=== PATIENT | male | born 2005 | race Two or more races ===

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

== ENCOUNTER 2024-12-29 12:00 | Emergency (ER) | payer MEDICAID ==
[~2024-12-29] VITALS: Ht 175.3 cm; Wt 91.6 kg
[~2024-12-29 12:00] MED LIST: OMEP-335 PO; ONDA-144 PO
[2024-12-29] MEDS: ACETAMINOPHEN 500 MG TAB or CAP PO ONE (12:33)
[2024-12-29 12:54] VITALS: BP 117/65; PULSE 109; RESP 18; O2SAT 100
--- NOTE | 2024-12-29 13:23 | ED.PDOC ---
Eye-HPI HPI Comments A 19 YEAR OLD MALE PRESENTS TO THE ED WITH CHIEF COMPLAINT OF SORE THROAT. PATIENT REPORTS THAT HE HAS BEEN EXPERIENCING A SORE THROAT WITH ASSOCIATED FEVER FOR THE PAST 4 DAYS. PATIENT DENIES ANY COUGH, NASAL CONGESTION, CHILLS, SOB, CHEST PAIN, N/V/D, OR ABDOMINAL PAIN. NO OTHER SYMPTOMS REPORTED AT THIS TIME OF CARE. Chief Complaint: Sore Throat Time Seen by MD: 13:20 Primary Care Provider: NONE Reviewed Notes: Nurses Notes, Medications, Allergies Allergies: Coded Allergies: NO KNOWN ALLERGIES (Unverified , 11/25/22) Home Meds Active Scripts Lidocaine HCl (Mouth-Throat) (Lidocaine HCl Viscous) 2 % Sharon, 5 ML MT TID, #100 ML Prov:HELDER AGUIRRE 12/29/24 Penicillin V Potassium (Veetids) 500 Mg Tab, 1 TAB PO QID, #28 TAB Prov:HELDER AGUIRRE 12/29/24 Omeprazole (Omeprazole) 20 Mg Tab, 20 MG PO DAILY for 10 Days, #10 TAB Prov:VICTOR MANUEL MAYO 11/25/22 Ondansetron (Zofran) 4 Mg Tab, 1 TAB PO Q6HR, #15 TAB Prov:VICTOR MANUEL [facility] 11/25/22 Information Source: Patient Mode of Arrival: Ambulatory Timing: Days Duration: Since onset Prehospital treatment: None Quality: Pain Lids: Normal Conjunctiva: Normal Cornea: Normal Pupils: Normal EOM: Normal Fundus: Normal Anterior chamber: Normal Mouth Location: Pharynx Mouth: Normal ENT Ear Exam: Normal, Normal, Normal Nose: Normal Sinuses: Normal Oropharynx: Red Onset: Spontaneous Throat Exposed to: None History of: None Associated signs and symptoms: Fever, Sore Throat Past Medical History PAST MEDICAL HISTORY: Denies Surgical History: Denies all surgeries Family History Family History: Reviewed,noncontributory to illness, No family hx of Cancer, No family hx of DM, No family hx of Heart chuck, No family hx of HTN, No family hx ofKidney chuck, No family hx of Liver chuck, No family hx of Lung chuck, No family hx of Stroke Social History Smoker: Non-Smoker Alcohol: Denies ETOH Use Drugs: Denies Drug Use Lives In: Home Constitutional: reports: fever; denies: chills, diaphoresis, fatigue, malaise, sweats, weakness, others EENTM: reports: throat pain, throat swelling; denies: blurred vision, double vision, ear bleeding, ear discharge, ear drainage, ear pain, ear ringing, eye pa in, eye redness, hearing loss, mouth pain, mouth swelling, nasal discharge, nose bleeding, nose congestion, nose pain, photophobia, tearing, voice changes, others Respiratory: denies: cough, hemoptysis, orthopnea, SOB at rest, shortness of breath, SOB with excertion, stridor, wheezing, others Cardiovascular: denies: chest pain, dizzy spells, diaphoresis, Dyspnea on exertion, edema, irregular heart beat, left arm pain, lightheadedness, palpitations, PND, syncope, others Gastrointestinal: denies: abdomen distended, abdominal pain, blood streaked bowels, constipated, diarrhea, dysphagia, difficulty swallowing, hematemesis, melena, nausea, poor appetite, poor fluid intake, rectal bleeding, rectal pain, vomiting, others Genitourinary: denies: burning, dysuria, flank pain, frequency, hematuria, incontinence, penile discharge, penile sore, pain, testicle pain, testicle swelling, urgency, others Neurological: denies: dizziness, fainting, headache, left sided numbness, left sided weakness, numbness, paresthesia, pre-existing deficit, right sided numbness, right sided weakness, seizure, speech problems, tingling, tremors, weakness, others Musculoskeletal: denies: back pain, gout, joint pain, joint swelling, muscle pain, muscle stiffness, neck pain, others Integumetry: denies: bruises, change in color, change in hair/nails, dryness, laceration, lesions, lumps, rash, wounds, others Allergic/Immunocompromised: denies: Difficulty Healing, Frequent Infections, Hives, Itching, others Hematologic/Lymphatic: denies: anemia, blood clots, easy bleeding, easy bruising, swollen glands, others Endocrine: denies: excessive hunger, excessive sweating, excessive thirst, excessive urination, flushing, intolerance to cold, intolerance to heat, unexplained weight gain, unexplained weight loss, others Psychiatric: denies: anxiety, bipolar disorder, depression, hopeless, panic disorder, schizophrenia, sleepless, suicidal, others All Other Systems: Reviewed and Negative Physical Exam General Appearance: No Apparent Distress, Normal HEENT: PERRL/EOMI, Pharyngeal Erythema (TONSILLAR SWELLING, NO EXUDATES. ), TMs Normal Neck: Full Range of Motion, Non-Tender, Normal, Normal Inspection Respiratory: Chest Non-Tender, Lungs Clear, No Accessory Muscle Use, No Respiratory Distress, Normal Breath Sounds Cardiovascular: No Edema, No JVD, No Murmur, No Gallop, Normal Peripheral Pulses, Regular Rate/Rhythm Breast Exam: Deferred Gastrointestinal: No Organomegaly, Non Tender, No Pulsatile Mass, Normal Bowel Sounds, Soft Genitalia: Deferred Pelvic: Deferred Rectal: Deferred Extremities: No calf tenderness, Normal capillary refill, Normal inspection, Normal range of motion, Non-tender, No pedal edema Musculoskeletal : Apperance: Normal Neurologic: Alert, 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 Was a procedure done?: No EENT DIFF Eye: N/A Ear: N/A Nose: N/A Mouth: N/A Sore Throat: Pharyngitis, Streptococcal, Viral Pharyngitis, Other (ACUTE TONSILLITIS ) X-Ray, Labs, Meds, VS Vital Signs Date Time Temp Pulse Resp B/P (MAP) Pulse Ox O2 Delivery O2 Flow Rate FiO2 12/29/24 13:56 98.7 12/29/24 12:54 109 18 100 Room Air 12/29/24 12:54 101.1 109 19 117/65 (82) 100 101.1 12/29/24 12:33 101.1 12/29/24 12:20 101.1 109 18 117/65 (82) 100 Current Medications Medications (Trade) Dose Ordered Sig/Inder Route Start Time Stop Time Status Last Admin Acetaminophen (Tylenol Tablet Or Capsule) 1,000 mg ONCE ONCE PO 12/29/24 12:30 12/29/24 12:31 DC 12/29/24 12:33 Ceftriaxone Sodium (Rocephin) 1,000 mg ONCE ONCE IM 12/29/24 13:15 12/29/24 13:16 DC 12/29/24 13:38 Methylprednisolone Sodium Succinate (Solu Medrol) 125 mg ONCE ONCE IM 12/29/24 13:15 12/29/24 13:16 DC 12/29/24 13:38 Lidocaine HCl (Xylocaine 1%) 2.1 ml ONCE ONCE IJ 12/29/24 13:30 12/29/24 13:31 DC 12/29/24 13:37 X-Ray, Labs, Meds, VS Comment EXTERNAL MEDICAL RECORDS REVIEWED: [NONE] INDEPENDENT HISTORIANS: [NONE] SOCIAL DETERMINANTS OF HEALTH: [NONE] LABS ORDERED: NONE REVIEWED AND INTERPRETED RESULTS: NONE IMAGING ORDERED: NONE TREATMENTS ORDERED: ROCEPHIN 1G IM, SOLU-MEDROL 125MG IM, TYLENOL 1G PO PROCEDURES PERFORMED: NONE CRITICAL CARE TIME: NONE I HAVE DISCUSSED THE PATIENT WITH THE ATTENDING PHYSICIAN DR. STEWARD AND HE AGREES WITH THE PATIENT'S PLAN OF CARE AND DISPOSITION. BASED ON HISTORY OF PRESENT ILLNESS, AND PHYSICAL EXAM, PATIENT WILL BE DISCHARGED HOME. DISCUSSED PLAN FOR DISCHARGE HOME WITH RX. MEDICATION WARNINGS GIVEN. SHARED DECISION MAKING: DISCUSSED WITH PATIENT THAT THEIR WORKUP WAS NORMAL. PATIENT INSTRUCTED TO FOLLOW UP WITH PRIMARY CARE PROVIDER IN 1-2 DAYS FOR RE- EVALUATION OF SYMPTOMS. PATIENT VERBALIZES UNDERSTANDING TO RETURN TO ED FOR NEW OR WORSENING SYMPTOMS OR IF FOLLOW UP WITH PCP CANNOT BE OBTAINED. PATIENT FEELS COMFORTABLE GOING HOME AT THIS TIME. ALL QUESTIONS ADDRESSED AT TIME OF DISCHARGE. Time of 1ST Reevaluation: 14:20 Reevaluation 1ST: Improved Patient Education/Counseling: Diagnosis, Treatment, Need For Follow Up Family Education/Counseling: Diagnosis, Treatment, Need For Follow Up Medical Screening: No EMC Exist At This Time Departure 1 Departure Time of Disposition: 14:20 Impression: Primary Impression: Acute streptococcal tonsillitis Qualified Codes: J03.00 - Acute streptococcal tonsillitis, unspecified Disposition: HOME / SELF CARE / HOMELESS Condition: Stable Additional Instructions: FOLLOW-UP WITH PCP IN 1 TO 2 DAYS. TAKE MEDICATIONS PRESCRIBED. RETURN TO ED FOR ANY NEW OR WORSENING SYMPTOMS. e-Prescriptions Lidocaine HCl (Mouth-Throat) (Lidocaine HCl Viscous) 2 % Sharon 5 ML MT TID, #100 ML Prov: HELDER AGUIRRE 12/29/24 Penicillin V Potassium (Veetids) 500 Mg Tab 1 TAB PO QID, #28 TAB Prov: HELDER AGUIRRE 12/29/24 Discharged With: Self Critical Care Note Critical Care Time?: No Stability Stability form required: No Heart Score Heart Score: Heart Score Response (Comments) Value History N/A 0 EKG N/A 0 Age N/A 0 Risk Factors N/A 0 Troponin N/A 0 Total 0 I personally scribed for HELDER AGUIRRE ([email or web address]) on 12/29/24 at 13:23. Electronically submitted by Kevin Espinosa ([email or web address]). I personally scribed for HELDER AGUIRRE ([email or web address]) on 12/29/24 at 13:24. Electronically submitted by Kevin Espinosa ([email or web address]). HELDER AGUIRRE Dec 29, 2024 13:23
[2024-12-29] MEDS: LIDOCAINE 1% HCL (LOCAL ANESTH.) INJ 20ML MDV IJ ONE (13:37)
[2024-12-29] MEDS: cefTRIAXone SOD 1,000 MG VL IM ONE (13:38)
[2024-12-29] MEDS: methylPREDNISolone SOD SUCC 125 MG/2 ML VL IM ONE (13:38)
[2024-12-29 13:56] VITALS: TEMP 98.7
[2024-12-29] MEDS ORDERED: PENI500T2 PO (14:07)
[2024-12-29] MEDS ORDERED: LIDO2SOL26 MT (14:07)
== END 2024-12-29 14:22 | disposition home or self-care (01) ==
LOC: ER 12:00
DX: J03.00 Acute streptococcal tonsillitis, unspecified (principal); Z79.899 Other long term (current) drug therapy
CPT/HCPCS: 96372; 99284; J0696; J2003; J2919

== ENCOUNTER 2025-09-18 16:17 | Emergency (ER) | payer MEDICAID ==
[~2025-09-18] VITALS: Ht 172.7 cm; Wt 95.2 kg
[~2025-09-18 16:17] MED LIST changes: +LIDO2SOL26 MT; +PENI500T2 PO
[2025-09-18 16:44] VITALS: BP 127/61; PULSE 99; RESP 20; TEMP 98.2; O2SAT 100
[2025-09-18] MEDS ORDERED: OXYM-15 (16:52)
[2025-09-18] MEDS ORDERED: PROM1SOL4 PO (16:52)
[2025-09-18] MEDS ORDERED: BENZ100C97 PO (16:52)
--- NOTE | 2025-09-18 16:52 | ED.PDOC ---
SOB-HPI HPI Comments 19-year-old male presents to the ER with a history of asthma in the chief complaint of shortness of breath. Patient reports on having had nasal congestion associated with a coughing and phlegm which all started yesterday. Patient notes on being on moxifloxacin due from his PCP. Denies any other symptoms at this time. Started Also with Therapies tried COVID-19 exposure: None that they know of COVID testing People at home Denies fevers chills night sweats unintentional weight loss Denies persistent chest pain, shortness of breath, leg swelling Denies history of asthma nor any breathing conditions Denies history of pneumonia Denies recent international travel Chief Complaint: Flu like Time Seen by MD: 16:36 Primary Care Provider: NONE Reviewed notes: Nurses Notes, Medications, Allergies Information Source: Patient Mode of Arrival: Ambulatory Severity: Moderate Timing: Hours Duration: Since onset, Hours Context: Spontaneous Onset PE Risk Factors: None History of: Asthma Prehospital treatment: None Associated Signs and Symptoms: Cough, Nasal Congestion If cough with SOB: Productive Past Medical History PAST MEDICAL HISTORY: Asthma Surgical History: Denies all surgeries Family History Family History: Reviewed,noncontributory to illness, Unknown Social History Smoker: Non-Smoker Alcohol: Denies ETOH Use Drugs: Denies Drug Use Lives In: Home Constitutional: denies: chills, diaphoresis, fatigue, fever, malaise, sweats, weakness, others EENTM: reports: nose congestion; denies: blurred vision, double vision, ear ble eding, ear discharge, ear drainage, ear pain, ear ringing, eye pain, eye redness, hearing loss, mouth pain, mouth swelling, nasal discharge, nose bleeding, nose pain, photophobia, tearing, throat pain, throat swelling, voice changes, others Respiratory: reports: cough; denies: hemoptysis, orthopnea, SOB at rest, shortness of breath, SOB with excertion, stridor, wheezing, others Cardiovascular: denies: chest pain, dizzy spells, diaphoresis, Dyspnea on exertion, edema, irregular heart beat, left arm pain, lightheadedness, palpitations, PND, syncope, others Gastrointestinal: denies: abdomen distended, abdominal pain, blood streaked bowels, constipated, diarrhea, dysphagia, difficulty swallowing, hematemesis, melena, nausea, poor appetite, poor fluid intake, rectal bleeding, rectal pain, vomiting, others Genitourinary: denies: burning, dysuria, flank pain, frequency, hematuria, incontinence, penile discharge, penile sore, pain, testicle pain, testicle swelling, urgency, others Neurological: denies: dizziness, fainting, headache, left sided numbness, left sided weakness, numbness, paresthesia, pre-existing deficit, right sided numbness, right sided weakness, seizure, speech problems, tingling, tremors, weakness, others Musculoskeletal: denies: back pain, gout, joint pain, joint swelling, muscle pain, muscle stiffness, neck pain, others Integumetry: denies: bruises, change in color, change in hair/nails, dryness, laceration, lesions, lumps, rash, wounds, others Allergic/Immunocompromised: denies: Difficulty Healing, Frequent Infections, Hives, Itching, others Hematologic/Lymphatic: denies: anemia, blood clots, easy bleeding, easy bruising, swollen glands, others Endocrine: denies: excessive hunger, excessive sweating, excessive thirst, excessive urination, flushing, intolerance to cold, intolerance to heat, unexplained weight gain, unexplained weight loss, others Psychiatric: denies: anxiety, bipolar disorder, depression, hopeless, panic disorder, schizophrenia, sleepless, suicidal, others All Other Systems: Reviewed and Negative Physical Exam Exam Comments Uvula midline, no airway obstruction, mmm General Appearance: No Apparent Distress, Normal HEENT: Normal ENT Inspection, Pharynx Normal, TMs Normal Neck: Full Range of Motion, Non-Tender, Normal, Normal Inspection Respiratory: Chest Non-Tender, Lungs Clear, No Accessory Muscle Use, No Respiratory Distress, Normal Breath Sounds Cardiovascular: No Edema, No JVD, No Murmur, No Gallop, Normal Peripheral Pulses, Regular Rate/Rhythm Breast Exam: Deferred Gastrointestinal: No Organomegaly, Non Tender, No Pulsatile Mass, Normal Bowel Sounds, Soft Genitalia: Deferred Pelvic: Deferred Rectal: Deferred Extremities: No calf tenderness, Normal capillary refill, Normal inspection, No rmal range of motion, Non-tender, No pedal edema Musculoskeletal : Apperance: Normal Neurologic: Alert, 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 Was a procedure done?: No X-Ray, Labs, Meds, VS Vital Signs Date Time Temp Pulse Resp B/P (MAP) Pulse Ox O2 Delivery O2 Flow Rate FiO2 09/18/25 16:44 99 20 100 Room Air 09/18/25 16:44 98.2 99 20 127/61 (83) 100 98.2 09/18/25 16:23 98.2 99 20 127/61 100 98.2 X-Ray, Labs, Meds, VS Comment Patient arrives alert and oriented, ABC's intact, afebrile, vital signs stable, saturating well in room air Additional MDM Review of External, Non-ED records: External records reviewed. Discussion with independent historian (EMS, family) history obtained from the patient/parents (if applicable) at bedside Chronic conditions affecting care: None Social determinants of health affecting care: None Consideration of admission (observation or admission): I considered escalation of care to admission for this patient, however given the reassuring workup, the patient is safe for outpatient management. Discussion with the Radiology: No Tests considered but not performed: Prescription medication considered but not given: 12 lead EKG interpretation: Time of 1ST Reevaluation: 17:00 Reevaluation 1ST: Unchanged Patient Education/Counseling: Diagnosis, Treatment, Prognosis Family Education/Counseling: No Family Present SEPSIS Sepsis Screen Date sepsis recognized/suspect: Sep 18, 2025 Time Sepsis recognized/suspect: 162 Recent Procedure: No On Antibiotic Therapy: No Respiratory Rate >20: No Heart Rate >90: Yes Temp<36 C (96.8 F) or >38.3 C: No SBP <90 or MAP <65 mmHG: No New Acute Mental Status Change: No Is the patient on CPAP, BIPAP,: No Vital Signs Date Time Temp Pulse Resp B/P (MAP) Pulse Ox O2 Delivery O2 Flow Rate FiO2 09/18/25 16:44 99 20 100 Room Air 09/18/25 16:44 98.2 99 20 127/61 (83) 100 98.2 09/18/25 16:23 98.2 99 20 127/61 100 98.2 Departure 1 Departure Time of Disposition: 16:50 Impression: Primary Impression: Viral syndrome Disposition: 01 HOME / SELF CARE / HOMELESS Condition: Stable e-Prescriptions Oxymetazoline Hcl (AFRIN 12 HOUR) 0.05 % Spr 2 SPRAY NA BID for 3 Days, #15 ML 0 Refills Prov: MANDA BUNN NP 09/18/25 Promethazine-Dm (Promethazine Dm 6.25-15 mg/5Ml) 1 Sharon Sharon 5 ML PO QHSP PRN for 10 Days, #50 ML 0 Refills Prov: MANDA BUNN NP 09/18/25 Benzonatate (Benzonatate) 100 Mg Cap 1 CAP PO TIDP PRN for 10 Days, #30 CAP 0 Refills Prov: MANDA BUNN NP 09/18/25 Critical Care Note Critical Care Time?: No Stability Stability form required: No I personally scribed for MANDA BUNN NP ([email or web address]) on 09/18/25 at 17:02. Electronically submitted by Billy Duran ([email or web address]). MANDA BUNN NP Sep 18, 2025 16:52
[2025-09-18] MEDS ORDERED: ALBU108A5 IN (16:54)
== END 2025-09-18 17:04 | disposition home or self-care (01) ==
LOC: ER 16:17
DX: B34.9 Viral infection, unspecified (principal); J45.909 Unspecified asthma, uncomplicated